=== PATIENT | female | born 1955 | race Caucasian/White ===

== ENCOUNTER 2017-02-08 11:12 | Day surgery (SDC) | payer BC ==
[~2017-02-08 11:12] MED LIST: LIDOCAINE 2% MDV (20MG/ML) 20ML VIAL IV ONE; PROPOFOL 10 MG/ML VIAL IV ONE
--- NOTE | 2017-02-14 11:11 | Operative Note ---
DATE OF SURGERY: 02/08/2017 SURGEON: Valerie Dietz MD OPERATION: COLONOSCOPY. INDICATIONS: This is a 61-year-old female with history of colon polyps who presented for surveillance colonoscopy. POSTOPERATIVE DIAGNOSES: 1. A 3 mm descending colon polyp that was removed by cold biopsy forceps. 2. Otherwise normal colon. ANESTHESIA: Sedation is per Anesthesia. Pulse oximetry was monitored throughout the procedure to maintain O2 saturation of 90% or greater. Supplemental oxygen was administered via nasal cannula. Cardiac and vital signs were monitored throughout the duration of the procedure, and they were stable. The procedure of colonoscopy and risks and alternatives of the procedure, including the risk of bleeding and perforation, among others, were explained to the patient who voiced understanding and agreed to have the procedure done. Physical examination was performed, and the patient was found stable for sedation. PROCEDURE: The patient was placed in the left lateral position. Sedation was initiated. A digital rectal exam was performed and showed some mild external hemorrhoids with no palpable rectal masses. An Olympus PCF-180AL colonoscope was then inserted into the rectum under direct visualization. It was advanced to the cecum without difficulty. The ileocecal valve and appendiceal orifice were identified and photographed. The colonic mucosa was carefully examined upon introduction of the colonoscope. There were no lesions noted in the cecum, ascending, or transverse colon. On the descending colon was a 3 mm sessile polyp that was noted and was removed by cold biopsy forceps. There were no other lesions noted. The colonoscope was then withdrawn further into the sigmoid colon, which was normal. The rectum was also normal. Retroflexion revealed no lesions. The colonoscope was then straightened and withdrawn and the procedure was terminated. The patient tolerated the procedure well without any immediate complications. She remained with stable vital signs and was transferred to the recovery room. RECOMMENDATIONS: 1. The patient should be on a high-fiber diet. 2. The patient is to have a repeat colonoscopy for surveillance in 3 or 5 years depending on the histology of the polyp. Thank you for allowing me to participate in the care of your patient. Valerie Dietz MD CC: Jackie WAYNE
== END 2017-02-08 13:43 | disposition home or self-care (01) ==
LOC: HOP 11:12
PROVIDERS: ATTEND Internal Medicine Gastroenterology
DX: Z86.010 Personal history of colon polyps (principal); D12.4 Benign neoplasm of descending colon

== ENCOUNTER 2019-12-16 17:47 | Emergency (ER) | payer BC ==
[2019-12-16 18:26] LABS: ABSOLUTE NEUTROPHIL COUNT 4.74; BASO % 0.4 % (0-6); EOS % 4.1 % (0-6); GRAN % 70.2 % (47-80); HEMATOCRIT 31.9 % (35.0-47.0); HEMOGLOBIN 9.9 gm/dl (11.6-16.0); LYMPH % 15.4 % (16-45); MEAN CELL VOLUME 95.8 fl (81-97); MEAN CORPUSCULAR HEMOGLOBIN 29.7 pg (27-33); MEAN PLATELET VOLUME 10.4 fl (7.4-10.4); MONO % 9.9 % (0-9); PLATELET COUNT 215 K/uL (130-400); RED BLOOD COUNT 3.33 M/uL (3.80-5.40); RED CELL DISTRIBUTION WIDTH 13.5 % (11.5-14.5); WHITE BLOOD COUNT W/O DIFF 6.8 K/uL (4.2-12.2)
[2019-12-16 18:35] LABS: BLOOD UREA NITROGEN 12 mg/dL (8-23); CREATININE 0.7 mg/dL (0.5-0.9); EST GLOMERULAR FILTRATION RATE > 60 mL/min; TOTAL PROTEIN 6.6 g/dL (6.6-8.7)
[2019-12-16 18:37] LABS: GLUCOSE,RANDOM 142 mg/dL (74-109)
[2019-12-16 18:38] LABS: INR 0.9; PARTIAL THROMBOPLASTIN TIME 24.7 SECONDS (24.5-39.1); PROTHROMBIN TIME (PATIENT) 9.4 SECONDS (9.5-12.1)
[2019-12-16 18:40] LABS: ALB/GLOB RATIO 1.3 (1.1-1.8); ALBUMIN 3.7 g/dL (4.0-5.0); ALKALINE PHOSPHATASE 58 U/L (35-104); ALT/SGPT 21 U/L (<33); AST/SGOT 25 U/L (10.0-35.0)
--- NOTE | 2019-12-16 18:57 | Emergency Department Record ---
History of Present Illness - General Chief Complaint: Shortness of breath Stated Complaint: SUSAN, Time Seen by Provider: 12/16/19 18:51 Source: Patient, RN notes reviewed Mode of Arrival: Wheelchair - History of Present Illness Initial Comments: right anterior chest wall pain and unable to take a deep breath and it started yesterday after rehab. She had the right hip replaced 6 days ago at [facility] by Dr Roche (younger). 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 in the last year?: No - Additonal Travel Details Have you been exposed to anyone with a communicable illness?: No - Travel Symptoms Symptom Screening: None Review of Systems Reviewed: No additional complaints except as noted below Constitutional: Reports: As per HPI. Denies: Chills, Fever, Malaise, Night sweats, Weakness, Weight change Eyes: Reports: As per HPI. Denies: Eye discharge, Eye pain, Photophobia, Vision change ENT: Reports: As per HPI. Denies: Congestion, Dental pain, Ear pain, Epistaxis, Hearing loss, Throat pain Respiratory: Reports: As per HPI, Dyspnea. Denies: Cough, Hemoptysis, Stridor, Wheezes Cardiovascular: Reports: As per HPI, Chest pain. Denies: Arrhythmia, Dyspnea on exertion, Edema, Murmurs, Orthopnea, Palpitations, Paroxysmal nocturnal dyspnea, Rheumatic Fever, Syncope Endocrine: Reports: As per HPI. Denies: Fatigue, Heat or cold intolerance, Polydipsia, Polyuria Gastrointestinal: Reports: As per HPI. Denies: Abdominal pain, Constipation, Diarrhea, Hematemesis, Hematochezia, Melena, Nausea, Vomiting Genitourinary: Reports: As per HPI. Denies: Abnormal menses, Discharge, Dyspareunia, Dysuria, Frequency, Hematuria, Incontinence, Retention, Urgency Musculoskeletal: Reports: As per HPI. Denies: Arthralgia, Back pain, Gout, Joint swelling, Myalgia, Neck pain Skin: Reports: As per HPI. Denies: Bruising, Change in color, Change in hair/nails, Lesions, Pruritus, Rash Neurological: Reports: As per HPI. Denies: Abnormal gait, Confusion, Headache, Numbness, Paresthesias, Seizure, Tingling, Tremors, Vertigo, Weakness Psychiatric: Reports: As per HPI. Denies: Anxiety, Auditory hallucinations, Depression, Homicidal thoughts, Suicidal thoughts, Visual hallucinations Hematological/Lymphatic: Reports: As per HPI. Denies: Anemia, Blood Clots, Easy bleeding, Easy bruising, Swollen glands Past Medical History - SOCIAL HISTORY Smoking Status: Former smoker Alcohol Use: None Drug Use: None - RESPIRATORY Hx Respiratory Disorders: Yes Hx Asthma: Yes Hx Pneumonia: Yes Hx Sleep Apnea: Yes Hx of CPAP: Yes - CARDIOVASCULAR Hx Cardio Disorders: Yes Hx Hypertension: Yes Comment:: HIGH CHOLESTEROL - NEURO Hx Neuro Disorders: Yes Hx Neuropathy: Yes Comment:: brain aneurysm - GI Hx GI Disorders: Yes Hx Reflux: Yes Comment:: UMBILICAL HERNIA - Hx Genitourinary Disorders: Yes Hx Bladder Problem: Yes - ENDOCRINE Hx Endocrine Disorders: Yes Hx Diabetes: Yes Hx Thyroid Disease: Yes (HYPO) - MUSCULOSKELETAL Hx Musculoskeletal Disorders: Yes Hx Arthritis: Yes - PSYCH Hx Psych Problems: Yes Hx Anxiety: Yes Hx Depression: Yes - HEMATOLOGY/ONCOLOGY Hx Hematology/Oncology Disorders: No Family Medical History Any Significant Family History?: No Hx Cancer: Mother, Grandparents Hx Heart Disease: Father Physical Exam - General General Appearance: Alert, Oriented x3, Cooperative, No acute distress - Head Head exam: Normal inspection - Eye Eye exam: Normal appearance, PERRL Pupils: Normal accommodation - ENT ENT exam: Normal exam, Mucous membranes moist, Normal external ear exam, Normal orophraynx, TM's normal bilaterally Ear exam: Normal external inspection. negative: External canal tenderness Nasal Exam: Normal inspection. negative: Discharge, Sinus tenderness Mouth exam: Normal external inspection, Tongue normal Teeth exam: Normal inspection. negative: Dental caries Throat exam: Normal inspection. negative: Tonsillar erythema, Tonsillar exudate - Neck Neck exam: Normal inspection, Full ROM. negative: Tenderness - Respiratory Respiratory exam: Normal lung sounds bilaterally. negative: Respiratory distress - Cardiovascular Cardiovascular Exam: Regular rate, Normal rhythm, Normal heart sounds - GI/Abdominal GI/Abdominal exam: Soft, Normal bowel sounds. negative: Tenderness - Rectal Rectal exam: Deferred - exam: Deferred - Extremities Extremities exam: Normal inspection, Full ROM, Normal capillary refill. negative: Tenderness - Back Back exam: Reports: Normal inspection, Full ROM. Denies: Muscle spasm, Rash noted, Tenderness - Neurological Neurological exam: Alert, Normal gait, Oriented X3, Reflexes normal - Psychiatric Psychiatric exam: Normal affect, Normal mood - Skin Skin exam: Dry, Intact, Normal color, Warm Course Vital Signs 12/16/19 17:52 Temperature 98.2 F Pulse Rate 89 Respiratory 20 Rate Blood Pressure 122/77 Pulse Ox 92 L - Reevaluation(s) Reevaluation #1: 12/16/19 18:56 care being turned over to Dr Nino at 7pm and she is going to CTA of chest Medical Decision Making - Lab Data Result diagrams: 12/16/19 18:17 12/16/19 18:17 Lab Results 12/16/19 12/16/19 12/16/19 Range/Units 18:17 18:17 18:17 WBC 6.8 (4.2-12.2) K/uL RBC 3.33 L (3.80-5.40) M/uL Hgb 9.9 L (11.6-16.0) gm/dl Hct 31.9 L (35.0-47.0) % MCV 95.8 (81-97) fl MCH 29.7 (27-33) pg MCHC 31.0 L (32-36) g/dl RDW 13.5 (11.5-14.5) % Plt Count 215 (130-400) K/uL MPV 10.4 (7.4-10.4) fl Gran % 70.2 (47-80) % Lymphocytes % 15.4 L (16-45) % Monocytes % 9.9 H (0-9) % Eosinophils % 4.1 (0-6) % Basophils % 0.4 (0-6) % Absolute Neutrophils 4.74 PT 9.4 L (9.5-12.1) SECONDS INR 0.9 APTT 24.7 (24.5-39.1) SECONDS Sodium 139 (136-145) mmol/L Potassium 3.9 (3.4-4.5) mmol/L Chloride 98 (98-107) mmol/L Carbon Dioxide 26.0 (22-29) mmol/L Anion Gap 15.0 (7-16) BUN 12 (8-23) mg/dL Creatinine 0.7 (0.5-0.9) mg/dL Estimated GFR > 60 mL/min Random Glucose 142 H (74-109) mg/dL Calcium 9.3 (8.8-10.2) mg/dL Total Bilirubin 0.30 (0.2-1.0) mg/dL AST 25 (10.0-35.0) U/L ALT 21 (<33) U/L Alkaline Phosphatase 58 (35-104) U/L Total Protein 6.6 (6.6-8.7) g/dL Albumin 3.7 L (4.0-5.0) g/dL Globulin 2.9 (1.4-4.8) gm/dL Albumin/Globulin Ratio 1.3 (1.1-1.8) Disposition Clinical Impression: Chest pain Qualifiers: Chest pain type: unspecified Qualified Code(s): R07.9 - Chest pain, unspecified Quality - Quality Measures Quality Measures: N/A - Blood Pressure Screening Does Patient Have Any of the Following: No Blood Pressure Classification: Pre-Hypertensive BP Reading Systolic Measurement: 122 Diastolic Measurement: 77 Screening for High Blood Pressure: < Pre-Hypertensive BP, F/U Documented > [G8950] Pre-Hypertensive Follow-up Interventions: Referral to alternative/primary care provider.
[2019-12-16] MEDS ORDERED: HEPARIN SODIUM 1000 UNIT/1 ML 10ML VIAL IVP ONE (19:39)
--- NOTE | 2019-12-16 19:42 | CT ANGIOGRAM REPORT ---
EXAMINATION: CT Angiography of the Thorax EXAM DATE: 12/16/2019 7:37 PM TECHNIQUE: Standard protocol CT angiogram images were obtained through the chest following the admini stration of intravenous contrast. Coronal and sagittal MIP 3-D reformations were performed. IV Contrast: The amount and type of contrast are recorded in the medical record. INDICATION: Diff breathing. COMPARISON: None ENCOUNTER: Not applicable FINDINGS: Pulmonary Artery: Extensive pulmonary emboli identified within branches of the right lower lobe pulmo nary arterial system. Aorta: No thoracic aortic aneurysm or dissection is present. Motion artifact at the aortic root. Right Heart Strain: Mild Heart : There is no pericardial effusion. Heart is enlarged. Priscila and Mediastinum: No lymphadenopathy. Lung Parenchyma: Low lung volumes. Breathing artifact. 3 mm nodule right upper lobe axial image 32 series 3 11 x 13 mm nodule lingula Emphysematous change most apparent within the upper lobes subpleural anteriorly. Bandlike area of abnormal density within the left upper lobe anteriorly. Patchy areas of groundglass opacity within the right lung most apparent within the lower lobe. Central Airways: 9 x 8 mm region of nodularity within the upper trachea best appreciated on axial im age 36 series 2. Pleural Effusion: None. Upper Abdomen: Heterogeneous enhancement of the spleen may be due to contrast timing Musculoskeletal and Chest Wall: Asymmetric breast tissue. No acute or suspicious bone lesion IMPRESSION: Examination is positive for multiple pulmonary emboli within the right lower lobe pulmonary arterial system 11 x 13 mm nodule within the lingula with additional smaller 3 mm nodule right upper lobe. Short-term follow-up in 3 months is requested in this patient with history of breast cancer. Diffuse Emphysematous change with patchy areas of groundglass opacity within the right lung most appa rent right lower lobe. Bandlike area of abnormal density within the left upper lobe anteriorly also requires follow-up to de monstrate stability progression or resolution 9 x 8 mm region of nodularity within the upper trachea. Need for bronchoscopy should be determined cl inically. Additional findings as above A Red Critical Result was communicated to Dr. Nino at 12/16/2019 7:38 PM. Dictated by: Tonya Moore MD on 12/16/2019 7:21 PM. .
[2019-12-16] MEDS ORDERED: HEPARIN SODIUM/D5W 25,000 UNITS/500 ML BAG IV SCH (19:45)
--- NOTE | 2019-12-16 19:52 | Emergency Department Record ---
History of Present Illness - General Chief Complaint: Shortness of breath Stated Complaint: SUSAN, Time Seen by Provider: 12/16/19 18:51 Source: Patient, RN notes reviewed Mode of Arrival: Wheelchair Limitations: No limitations - History of Present Illness Onset/Timin -: Hour(s) Improves With: Nothing Worsens With: Nothing Known History Of: Asthma, Other Treatments Prior to Arrival: None - Related Data Home Medications Medication Instructions Recorded Confirmed Last Taken Ropinirole HCl [Requip] 0.25 mg PO QHS 12/16/19 12/16/19 12/16/19 Allergies Allergy/AdvReac Type Severity Reaction Status Date / Time lisinopril AdvReac Intermediate groggy, Verified 12/16/19 19:13 headaches, 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 in the last year?: No - Additonal Travel Details Have you been exposed to anyone with a communicable illness?: No - Travel Symptoms Symptom Screening: None Review of Systems Constitutional: Reports: As per HPI. Denies: Chills, Fever, Malaise, Night sweats, Weakness, Weight change Eyes: Reports: As per HPI. Denies: Eye discharge, Eye pain, Photophobia, Vision change ENT: Reports: As per HPI. Denies: Congestion, Dental pain, Ear pain, Epistaxis, Hearing loss, Throat pain Respiratory: Reports: As per HPI, Dyspnea. Denies: Cough, Hemoptysis, Stridor, Wheezes Cardiovascular: Reports: As per HPI, Chest pain. Denies: Arrhythmia, Dyspnea on exertion, Edema, Murmurs, Orthopnea, Palpitations, Paroxysmal nocturnal dyspnea, Rheumatic Fever, Syncope Endocrine: Reports: As per HPI. Denies: Fatigue, Heat or cold intolerance, Polydipsia, Polyuria Gastrointestinal: Reports: As per HPI. Denies: Abdominal pain, Constipation, Diarrhea, Hematemesis, Hematochezia, Melena, Nausea, Vomiting Genitourinary: Reports: As per HPI. Denies: Abnormal menses, Discharge, Dyspareunia, Dysuria, Frequency, Hematuria, Incontinence, Retention, Urgency Musculoskeletal: Reports: As per HPI. Denies: Arthralgia, Back pain, Gout, Joint swelling, Myalgia, Neck pain Skin: Reports: As per HPI. Denies: Bruising, Change in color, Change in hair/nails, Lesions, Pruritus, Rash Neurological: Reports: As per HPI. Denies: Abnormal gait, Confusion, Headache, Numbness, Paresthesias, Seizure, Tingling, Tremors, Vertigo, Weakness Psychiatric: Reports: As per HPI. Denies: Anxiety, Auditory hallucinations, Depression, Homicidal thoughts, Suicidal thoughts, Visual hallucinations Hematological/Lymphatic: Reports: As per HPI. Denies: Anemia, Blood Clots, Easy bleeding, Easy bruising, Swollen glands Past Medical History - SOCIAL HISTORY Smoking Status: Former smoker Alcohol Use: None Drug Use: None - RESPIRATORY Hx Respiratory Disorders: Yes Hx Asthma: Yes Hx Pneumonia: Yes Hx Sleep Apnea: Yes Hx of CPAP: Yes - CARDIOVASCULAR Hx Cardio Disorders: Yes Hx Hypertension: Yes Comment:: HIGH CHOLESTEROL - NEURO Hx Neuro Disorders: Yes Hx Neuropathy: Yes Comment:: brain aneurysm - GI Hx GI Disorders: Yes Hx Reflux: Yes Comment:: UMBILICAL HERNIA - Hx Genitourinary Disorders: Yes Hx Bladder Problem: Yes - ENDOCRINE Hx Endocrine Disorders: Yes Hx Diabetes: Yes Hx Thyroid Disease: Yes (HYPO) - MUSCULOSKELETAL Hx Musculoskeletal Disorders: Yes Hx Arthritis: Yes - PSYCH Hx Psych Problems: Yes Hx Anxiety: Yes Hx Depression: Yes - HEMATOLOGY/ONCOLOGY Hx Hematology/Oncology Disorders: No Family Medical History Any Significant Family History?: No Hx Cancer: Mother, Grandparents Hx Heart Disease: Father Course Vital Signs 12/16/19 12/16/19 17:52 19:08 Temperature 98.2 F Pulse Rate 89 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 ] Respiratory 20 20 Rate Blood Pressure 122/77 Blood Pressure 113/74 [Right Arm] Pulse Ox 92 L 95 - Reevaluation(s) Reevaluation #1: 12/16/19 19:50 pt has multiple prominet pes in rll per ct with r heart strain 12/16/19 20:09 Reevaluation #2: 12/16/19 20:00 d/w sparelena and dr driscoll 12/16/19 20:09 Reevaluation #3: 12/16/19 20:23 pt also has pulmonary nodules that need 3 month f/u Medical Decision Making - Lab Data Result diagrams: 12/16/19 18:17 12/16/19 18:17 Lab Results 12/16/19 12/16/19 12/16/19 Range/Units 18:17 18:17 18:17 WBC 6.8 (4.2-12.2) K/uL RBC 3.33 L (3.80-5.40) M/uL Hgb 9.9 L (11.6-16.0) gm/dl Hct 31.9 L (35.0-47.0) % MCV 95.8 (81-97) fl MCH 29.7 (27-33) pg MCHC 31.0 L (32-36) g/dl RDW 13.5 (11.5-14.5) % Plt Count 215 (130-400) K/uL MPV 10.4 (7.4-10.4) fl Gran % 70.2 (47-80) % Lymphocytes % 15.4 L (16-45) % Monocytes % 9.9 H (0-9) % Eosinophils % 4.1 (0-6) % Basophils % 0.4 (0-6) % Absolute Neutrophils 4.74 PT 9.4 L (9.5-12.1) SECONDS INR 0.9 APTT 24.7 (24.5-39.1) SECONDS Sodium 139 (136-145) mmol/L Potassium 3.9 (3.4-4.5) mmol/L Chloride 98 (98-107) mmol/L Carbon Dioxide 26.0 (22-29) mmol/L Anion Gap 15.0 (7-16) BUN 12 (8-23) mg/dL Creatinine 0.7 (0.5-0.9) mg/dL Estimated GFR > 60 mL/min Random Glucose 142 H (74-109) mg/dL Calcium 9.3 (8.8-10.2) mg/dL Total Bilirubin 0.30 (0.2-1.0) mg/dL AST 25 (10.0-35.0) U/L ALT 21 (<33) U/L Alkaline Phosphatase 58 (35-104) U/L Troponin T (0-0.010) ng/mL Total Protein 6.6 (6.6-8.7) g/dL Albumin 3.7 L (4.0-5.0) g/dL Globulin 2.9 (1.4-4.8) gm/dL Albumin/Globulin Ratio 1.3 (1.1-1.8) 12/16/19 Range/Units 18:17 WBC (4.2-12.2) K/uL RBC (3.80-5.40) M/uL Hgb (11.6-16.0) gm/dl Hct (35.0-47.0) % MCV (81-97) fl MCH (27-33) pg MCHC (32-36) g/dl RDW (11.5-14.5) % Plt Count (130-400) K/uL MPV (7.4-10.4) fl Gran % (47-80) % Lymphocytes % (16-45) % Monocytes % (0-9) % Eosinophils % (0-6) % Basophils % (0-6) % Absolute Neutrophils PT (9.5-12.1) SECONDS INR APTT (24.5-39.1) SECONDS Sodium (136-145) mmol/L Potassium (3.4-4.5) mmol/L Chloride (98-107) mmol/L Carbon Dioxide (22-29) mmol/L Anion Gap (7-16) BUN (8-23) mg/dL Creatinine (0.5-0.9) mg/dL Estimated GFR mL/min Random Glucose (74-109) mg/dL Calcium (8.8-10.2) mg/dL Total Bilirubin (0.2-1.0) mg/dL AST (10.0-35.0) U/L ALT (<33) U/L Alkaline Phosphatase (35-104) U/L Troponin T < 0.010 (0-0.010) ng/mL Total Protein (6.6-8.7) g/dL Albumin (4.0-5.0) g/dL Globulin (1.4-4.8) gm/dL Albumin/Globulin Ratio (1.1-1.8) Disposition Disposition: Transfer Clinical Impression: Pulmonary nodules/lesions, multiple Chest pain Qualifiers: Chest pain type: unspecified Qualified Code(s): R07.9 - Chest pain, unspecified Pulmonary emboli Qualifiers: Pulmonary embolism type: unspecified Chronicity: acute Acute cor pulmonale presence: without acute cor pulmonale Qualified Code(s): I26.99 - Other pulmonary embolism without acute cor pulmonale Disposition: Acute Care Hospital Transfer Transfer To: [facility] Reason For Transfer: needs higher level of care and to be where surgery was done Accepting Physician: dr driscoll Time Discussed w/Accepting Physician: 20:08 Forms: Patient Portal Access Quality - Quality Measures Quality Measures: N/A - Blood Pressure Screening Does Patient Have Any of the Following: No Blood Pressure Classification: Pre-Hypertensive BP Reading Systolic Measurement: 122 Diastolic Measurement: 77 Screening for High Blood Pressure: < Pre-Hypertensive BP, F/U Documented > [G8950] Pre-Hypertensive Follow-up Interventions: Follow-up with rescreen every year.
[2019-12-16] MEDS ORDERED: ACETAMINOPHEN 1,000 MG/100 ML BTL IVPB ONE (19:58)
[2019-12-16] MEDS ORDERED: MORPHINE SULFATE 5 MG/ML VIAL IVP ONE (20:26)
== END 2019-12-16 20:52 | disposition short-term general hospital (02) ==
LOC: ER 17:47
DX: I26.99 Other pulmonary embolism without acute cor pulmonale (principal); R91.8 Other nonspecific abnormal finding of lung field; R07.89 Other chest pain; R06.00 Dyspnea, unspecified; E11.9 Type 2 diabetes mellitus without complications; I10 Essential (primary) hypertension; Z96.641 Presence of right artificial hip joint; Z87.891 Personal history of nicotine dependence
CPT/HCPCS: 71275; 80053; 84484; 85025; 85610; 85730; 93005; 93010; 96365; 96375; 99285